=== PATIENT | female | born 1995 | race African-American/Black ===

== ENCOUNTER 2025-03-19 08:35 | Outpatient (AMB) | payer OTHER, SELFPAY ==
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
[2025-03-19 08:49] VITALS: BP 134/86; PULSE 91; RESP 22; TEMP 36.6; O2SAT 97; BMI 61.1
== END 2025-03-19 09:36 | disposition home or self-care (01) ==
LOC: HO.HMCH 08:35
PROVIDERS: PCP Student in an Organized Health Care Education/Training Program; Visit Provider Student in an Organized Health Care Education/Training Program
DX: J45.50 Severe persistent asthma, uncomplicated (principal); F31.81 Bipolar II disorder; F41.1 Generalized anxiety disorder; F43.10 Post-traumatic stress disorder, unspecified; L73.2 Hidradenitis suppurativa; D06.9 Carcinoma in situ of cervix, unspecified; Z76.89 Persons encountering health services in other specified circumstances

== ENCOUNTER 2025-03-19 08:35 | Outpatient (REF) | payer OTHER, SELFPAY ==
[2025-03-19 13:58] LABS: MANUAL DIFF FLAG NO
[2025-03-19 14:12] LABS: Hematocrit 41.5 % (37.0-47.0); Hemoglobin 12.8 g/dl (12.0-16.0); Imm Gran Abs Auto 0.01 X10*3/uL (0.00-0.03); Imm Gran Pct Auto 0.1 % (0.0-0.4); Lymphocytes Absolute Auto 2.6 X10*3/uL (1.2-4.9); Mean Corpuscular HGB Conc 30.8 g/dl (31.0-35.0); Mean Corpuscular Hemoglobin 25.2 pg (27.0-33.0); Mean Corpuscular Volume 81.9 fL (80.0-98.0); NRBC Abs Auto 0.000 X10*3/uL (0.0-0.012); NRBC Pct Auto 0.0 /100WBC (0.0-0.2); Platelet Count 326 X10*3/uL (160-400); Red Blood Count 5.07 X10*6/uL (4.20-5.50); White Blood Count 7.8 X10*3/uL (4.8-10.8)
[2025-03-19 14:29] LABS: Alanine Aminotransferase 9 U/L (0-31); Albumin Level 4.2 g/dL (3.5-5.0); Alkaline Phosphatase 78 U/L (39-117); Anion Gap 12 (12-20); Aspartate Amino Transferase 21 U/L (5-31); Blood Urea Nitrogen 15 mg/dL (9-16); Calcium 9.5 mg/dL (8.4-10.2); Carbon Dioxide 25 mmol/L (22-29); Chloride 109 mmol/L (96-108); Cholesterol 176 mg/dL (<200); Estimated Glomerular Filt Rate > 60; HDL Cholesterol 60 mg/dL (>40); Potassium 4.1 mmol/L (3.3-5.1); Sodium 142 mmol/L (135-145); Total Protein 7.7 g/dL (6.5-8.0); Triglycerides 65 mg/dL (<150)
[2025-03-19 15:22] LABS: Reflex LDLD? No
== END 2025-03-19 08:36 | disposition home or self-care (01) ==
LOC: HO.HKASLDS 08:35
PROVIDERS: PCP Student in an Organized Health Care Education/Training Program; Visit Provider Student in an Organized Health Care Education/Training Program
DX: Z00.00 Encounter for general adult medical examination without abnormal findings (principal); Z13.220 Encounter for screening for lipoid disorders; Z13.1 Encounter for screening for diabetes mellitus; Z76.89 Persons encountering health services in other specified circumstances; F31.81 Bipolar II disorder; F41.1 Generalized anxiety disorder; F43.10 Post-traumatic stress disorder, unspecified; J45.50 Severe persistent asthma, uncomplicated; L73.2 Hidradenitis suppurativa; D06.9 Carcinoma in situ of cervix, unspecified; Z79.899 Other long term (current) drug therapy
CPT/HCPCS: 36415; 80053; 80061; 83036; 85025; 96127